=== PATIENT | female | born 1985 | race Two or more races ===

== ENCOUNTER 2019-01-28 11:11 | Outpatient (CLI) | payer OTHER | END 2019-01-28 12:45 | disposition home or self-care (01) | LOC: LAB 11:11 | DX: Z34.81 Encounter for supervision of other normal pregnancy, first trimester (principal) ==

== ENCOUNTER 2019-07-08 11:00 | Inpatient (IN) | payer OTHER ==
[~2019-07-08] VITALS: Ht 165.1 cm; Wt 87.5 kg
[2019-07-08] MEDS ORDERED: PRENATAL TABLE1 EAC1 PO (13:37)
== END 2019-07-11 16:28 | disposition home or self-care (01) | DRG 785 ==
LOC: LDR 11:00 → OB/GYN 11:00
PROVIDERS: ADMIT Obstetrics & Gynecology
PROC: 0UB70ZZ Excision of Bilateral Fallopian Tubes, Open Approach (ICD-10-PCS; 2019-07-08)
PROC: 4A033R1 Measurement of Arterial Saturation, Peripheral, Percutaneous Approach (ICD-10-PCS; 2019-07-08)
PROC: 4A1HXCZ Monitoring of Products of Conception, Cardiac Rate, External Approach (ICD-10-PCS; 2019-07-08)
PROC: 10D00Z1 Extraction of Products of Conception, Low, Open Approach (ICD-10-PCS; principal; 2019-07-08 18:15)
DX: O33.8 Maternal care for disproportion of other origin (principal); Z3A.40 40 weeks gestation of pregnancy; Z37.0 Single live birth; Z30.2 Encounter for sterilization

== ENCOUNTER → 2020-09-20 | Emergency (ER) | payer OTHER ==
[~2020-09-20] VITALS: Ht 165.1 cm; Wt 65.8 kg
[~2020-09-20] MED LIST: PRENATAL TABLE1 EAC1 PO
== END | disposition left against medical advice (07) ==
LOC: ER 17:06
DX: J06.9 Acute upper respiratory infection, unspecified (principal)

== ENCOUNTER 2021-04-17 10:14 | Outpatient (CLI) | payer OTHER | END 2021-04-17 10:19 | disposition home or self-care (01) | LOC: RAD 10:14 | PROVIDERS: ATTEND Specialist | DX: M41.85 Other forms of scoliosis, thoracolumbar region (principal); R09.89 Other specified symptoms and signs involving the circulatory and respiratory systems; F17.210 Nicotine dependence, cigarettes, uncomplicated; Z13.220 Encounter for screening for lipoid disorders; Z13.1 Encounter for screening for diabetes mellitus ==

== ENCOUNTER 2023-02-27 07:59 | Outpatient (CLI) | payer OTHER | END 2023-02-27 08:08 | disposition home or self-care (01) | LOC: RAD 07:59 | PROVIDERS: ATTEND General Practice | DX: R10.9 Unspecified abdominal pain (principal); R11.0 Nausea ==

== ENCOUNTER 2023-12-01 09:38 | Outpatient (CLI) | payer OTHER | END 2023-12-01 09:48 | disposition home or self-care (01) | LOC: TOM 09:38 | PROVIDERS: ATTEND General Practice | DX: R51.9 Headache, unspecified (principal); R04.0 Epistaxis; R42 Dizziness and giddiness; R05.9 Cough, unspecified; R06.02 Shortness of breath ==

== ENCOUNTER 2024-01-18 11:58 | Outpatient (CLI) | payer OTHER | END 2024-01-18 12:08 | disposition home or self-care (01) | LOC: SONOGRAMA 11:58 | PROVIDERS: ATTEND General Practice | DX: R80.9 Proteinuria, unspecified (principal); R31.9 Hematuria, unspecified ==